=== PATIENT | male | born 1960 | race Caucasian/White ===

== ENCOUNTER 2021-03-27 14:51 | Emergency (ER) | payer BC ==
--- OUTSIDE RECORDS SUMMARY | 2021-03-27 14:53 | XMS REPORT | Continuity of Care Document ---
:1960 Author Organization [facility] t Address [facility] [place] [address] Care Team Providers Name Role Phone Andrei MENDOSA, Bal Primary Care Physician Mohsen Jason MD Attending Clinician Helen Tolbert MD Attending Clinician [phone] Phan Telles MD Attending Clinician David Villareal MD Attending Clinician Payers Payer Name Policy Type Policy Effective Date Expiration Date Sour ce Number BCBSBCBS OUT OF [id number] [id number] 00:00:00 [facility] entPPO Problems Condition Condition Condition Status Onset Resolution Last Treating Co mments Source Name Details Category Date Date Treatment Clinician Date No known No known Disease Metho di active active st problems problems Hospit a l Allergies, Adverse Reactions, Alerts Allergy Allergy Status Severity Reaction(s) Onset Inactive Treating Comm ents Source Name Type Date Date Clinician Codesebas Propensi Active GI 2012-08 Methodi ty to Intolerance 2-18 st adverse 00:00: Hospita reaction 00 l s to drug Family History Family Member Diagnosis Comments Start Date Stop Date Source Natural brother Cancer [facility] Natural father Cancer [facility] Natural mother Kidney disease [facility] Social History Social Habit Start Date Stop Date Quantity Comments Source Exposure to Not sure [facility] SARS-CoV-2 (event) Hospit al Cigarettes smoked 2021-03-04 2021-03-[address] current (pack per 00:00:00 00:00:00 Hospita l day) - Reported Cigarette 2021-03-04 2021-03-04 [facility] pack-years 00:00:00 00:00:00 Hospital Tobacco use and 2021-03-04 2021-03-04 Never used [facility] exposure 00:00:00 00:00:00 Hospital Alcohol intake 2021-03-04 2021-03-04 Current drinker Metho dist 00:00:00 00:00:00 of alcohol Hospital (finding) History of tobacco 1975-01-29 2013-09-10 Current smoker [facility] use 00:00:00 00:00:00 Hospital Sex Ass[birth year] At [birth year] [facility] 00:00:00 00:00:00 Hospital Smoking Status Start Date Stop Date Source Former smoker 2021-03-04 00:00:00 2021-03-04 00:00:00 [facility] Medications Ordered Filled Start Stop Current Ordering Indication Dosage Frequency Signature Comments Components Source Medication Medication Date Date Medication? Clinician (SIG) Name Name GARLIC ORAL Yes Take by Met [facility] -[address] 18:37: Hospita 26 l gluc Yes by NOT Methodi feldman/chondro 03-[address] feldman A/vit 18:37: route. Hospita C/Mn 26 l (GLUCOSAMIN E 1500 COMPLEX ORAL) sildenafil, Yes TAKE 2 TO M ethodi for 5-[address] pulmonary 00:00: BY MOUTH Hosp brielle hypertensio 00 ONCE DAILY l n, NEEDED (REVATIO) FOR 20 mg SEXUAL tablet INTERCOURS E allopurinoL Yes TAKE 1 Meth kvng (ZYLOPRIM) 3-26 TABLET(300 st 300 MG 00:00: MG) BY Hospita tablet 00 MOUTH l DAILY metoprolol Yes TAKE 1 Metho di succinate 3-26 TABLET(200 st XL 00:00: MG) BY Hospita (TOPROL-XL) 00 MOUTH l 200 mg 24 DAILY hr tablet colchicine Yes .6mg Take 0.6 Met [facility] 0.6 mg 3-[address] tablet 00:00: mouth. Hospita 00 l gabapentin Yes TAKE ONE [facility]odi (NEURONTIN) 3-[address] 100 mg 00:00: MOUTH Hospita capsule 00 NIGHTLY l spironolact 2018-0 Yes 50mg Take 50 mg Methodi one 5-[address] (ALDACTONE) 00:00: Hospit a 50 MG 00 l tablet Vital Signs Vital Name Observation Time Observation Value Comments Source Body height 2021-03-04 18:32:00 185.4 cm [facility] Body weight 2021-03-04 18:32:00 113.399 kg [facility] BMI 2021-03-04 18:32:00 32.98 kg/m2 [facility] Procedures Procedure Date / Time Performed Performing Clinician Sour e XR KNEE AP STANDING 2021-03-04 18:41:57 [facility] BILATERAL XR KNEE 3 VW RIGHT 2021-03-04 18:41:10 Georgi Villareal [facility] Plan of Care Planned Activity Planned Date Details Comments Source Future Scheduled Test COVID-19 VACCINE (1) [facility] [code = COVID-19 VACCINE (1)] Future Scheduled Test Hepatitis C screening [facility] (procedure) [code = 646520154] Future Scheduled Test COLONOSCOPY SCREENING [facility] [code = COLONOSCOPY SCREENING] Future Scheduled Test SHINGLES VACCINES (#1) [facility] [code = SHINGLES VACCINES (#1)] Future Scheduled Test Screening for malignant [facility] neoplasm of lung (procedure) [code = 671254037] Future Scheduled Test INFLUENZA VACCINE [code [facility] = INFLUENZA VACCINE] Encounters Start End Encounter Admission Attending Care Care Encounter Source Date/Time Date/Time Type Type Clinicians Facility Department ID 2021-03-11 2021-03-11 Transcribe Eren, 1.2.840.1 [id number] Methodi 00:00:00 00:00:00 Orders Ruben 44478.1.[address] [facility] 3.430.2.7 Hospit a .3.310824 l .8 2021-03-11 2021-03-11 Orders Castañeda-Sand 1.2.840.1 [id number] Methodi 00:00:00 00:00:00 Only oval, [address]882.1.[address] Helen 3.430.2.7 Ho spita .3.778873 l .8 2021-03-09 2021-03-09 Telephone Maddy-Sharifa 1.2.840.1 [id number] Methodi 00:00:00 00:00:00 skyla, [address]63.1.[address] Cervantes 3.430.2.7 Ho spita .3.279703 l .8 2021-03-09 2021-03-09 Telephone [place], 1.2.840.1 [id number] Methodi 00:00:00 00:00:00 Hiram Phan [address]95.[address] 3.430.2.7 Hospit a .3.204718 l .8 2021-03-04 2021-03-04 Office Sitter, 1.2.840.1 [id number] Methodi 13:19:37 13:58:42 Visit Georgi Hernandez 27365.1.1 240 s t 3.430.2.7 Hospit a .3.402063 l .8 2021-03-04 2021-03-04 Travel 1.2.840.1 1.2.141.239 [id number] Methodi 00:00:00 00:00:[address] 3.430.2.7 0.2.7.3.698 Ho spita .3.234783 084.8 l .8 2021-03-04 2021-03-04 Outpatient SITTER, [facility] [id number] [place] 00:00:00 00:00:00 GEORGI [address] 2021-03-04 2021-03-04 Outpatient SITTER, [facility] [id number] [place] 00:00:00 00:00:00 GEORGI [address] 2021-03-04 2021-03-04 Outpatient SITTER, [facility] [id number] [place] 00:00:00 00:00:00 GEORGI [address] 2021-02-11 2021-02-11 Travel 1.2.840.1 [id number] [id number] Methodi 00:00:00 00:00:[address] 3.430.2.7 0.2.7.3.698 Ho spita .3.396425 084.8 l .8 Results This patient has no known results.
--- NOTE | 2021-03-27 16:46 | RAD REPORT ---
EXAM DESCRIPTION: RAD - Chest Pa And Lat (2 Views) - 03/27/2021 4:07 pm CLINICAL HISTORY: SOB Chest pain. COMPARISON: <Comparisons> FINDINGS: Mild bilateral pulmonary opacities are present, greater on the left. Most likely, this is related viral infection. The heart is normal in size. No displaced fractures.
[2021-03-27 16:49] LABS: Absolute Lymphocytes (CBC) 1.6 K/uL (0.7-4.9); Basophils % 0.5 % (0-1.3); Hematocrit 49.8 % (39.6-49.0); Lymphocytes % 17.2 % (15.3-44.8); MPV 7.8 fL (7.6-11.3); RBC Red Blood Cell Count 5.48 M/uL (4.33-5.43)
[2021-03-27 16:57] LABS: Protime INR 1.28
[2021-03-27 17:07] LABS: ALT/SGPT 72 U/L (12-78); AST/SGOT 73 U/L (15-37); BUN Blood Urea Nitrogen 19 mg/dL (7-18); Bicarbonate 28 mmol/L (21-32); Glucose Level 92 mg/dL (74-106); Potassium 3.9 mmol/L (3.5-5.1); Sodium Level 131 mmol/L (136-145)
[2021-03-27 17:08] LABS: Albumin 2.9 g/dL (3.4-5.0); Alkaline Phosphatase 103 U/L (45-117); Bilirubin Direct 0.4 mg/dL (0-0.2); Bilirubin Total 0.7 mg/dL (0.2-1.0); Ferritin 606.8 ng/mL (26-388); Magnesium 1.9 mg/dL (1.8-2.4); NT PRO-BNP 103 pg/mL (<125); Protein, Total 6.7 g/dL (6.4-8.2); Troponin (Emerg Dept Use Only) < 0.02 ng/mL (0.0-0.045)
[2021-03-27 17:42] LABS: Blood Morphology Comment NOT SEEN (NOT SEEN); Platelet Estimate ADEQ; White Blood Cell Scan OK (OK)
[2021-03-27 21:18] LABS: Blood Gas Oxyhemoglobin 89.3 % (94-97)
[2021-03-27] MEDS ORDERED: NA CHLORIDE 0.9% 1,000 ML ONE (21:36)
--- NOTE | 2021-03-27 22:04 | ER ---
Nurse's Notes [facility] Name: Georgi Campoverde Age: 60 yrs Sex: Male : 1960 Arrival Date: 03/27/2021 Time: 14:52 Bed 8 Private MD: Diagnosis: Influenza due to other identified influenza virus with pneumonia;SARS-associated coronavirus as the cause of diseases classified elsewhere Presentation: 03/27 15:44 Chief complaint: Patient states: Chills, body aches, SOB x 1 week. Coronavirus screen: kg Client denies travel out of the [place] in the last 14 days. At this time, unable to obtain information related to travel outside the [place] Client presents with at least one sign or symptom that may indicate coronavirus-19. Standard/surgical mask placed on the client. Provider contacted for isolation considerations. Ebola Screen: Patient negative for fever greater than or equal to 101.5 degrees Fahrenheit, and additional compatible Ebola Virus Disease symptoms Patient denies exposure to infectious person. Patient denies travel to an Ebola-affected area in the 21 days before illness onset. Initial Sepsis Screen: Does the patient meet any 2 criteria? No. Patient's initial sepsis screen is negative. Does the patient have a suspected source of infection? No. Patient's initial sepsis screen is negative. Onset of symptoms was March 22, 2021. 15:44 Method Of Arrival: Ambulatory kg 15:48 Risk Assessment: Do you want to hurt yourself or someone else? Patient reports no kg desire to harm self or others. 15:48 Acuity: KRYSTEN 3 kg Triage Assessment: 15:59 General: Appears in no apparent distress. Behavior is calm, cooperative, appropriate kg for age, quiet. Respiratory: Reports shortness of breath at rest on exertion cough that is Onset: The symptoms/episode began/occurred gradually, the patient has mild shortness of breath. Historical: - Allergies: 15:48 codeine sulfate; kg - Home Meds: 15:48 Bystolic 20 mg oral tab 1 tab once daily [Active]; gabapentin oral [Active]; kg allopurinol 300 mg Oral tab 1 tab [Active]; - PMHx: 15:48 Hypertensive disorder; Gout; neuropathy; kg - Immunization history:: Adult Immunizations not up to date, Client reports having NOT received the Covid vaccine. - Social history:: Smoking status: Patient denies any tobacco usage or history of. Patient uses alcohol, weekly. Screenin:47 Abuse screen: Denies threats or abuse. Denies injuries from another. Nutritional kg screening: No deficits noted. Tuberculosis screening: No symptoms or risk factors identified. Fall Risk None identified. No fall in past 12 months (0 pts). No secondary diagnosis (0 pts). No IV (0 pts). Ambulatory Aid- None/Bed Rest/Nurse Assist (0 pts). Gait- Normal/Bed Rest/Wheelchair (0 pts) Mental Status- Oriented to own ability (0 pts). Total Mcbride Fall Scale indicates No Risk (0-24 pts). Assessment: 15:57 Pain: Complains of pain in chest, Generalized. Respiratory: Airway is patent kg Respiratory effort is even, unlabored, relaxed, Breath sounds are clear. 21:00 Reassessment:. General: Appears in no apparent distress. uncomfortable, Behavior is jb4 calm, cooperative, appropriate for age. Pain: Denies pain. Neuro: Level of Consciousness is awake, alert, obeys commands, Oriented to person, place, time, situation. Cardiovascular: Patient's skin is warm and dry. Respiratory: Airway is patent Respiratory effort is even, unlabored, Respiratory pattern is regular, symmetrical. GI: No signs and/or symptoms were reported involving the gastrointestinal system. : No signs and/or symptoms were reported regarding the genitourinary system. EENT: No signs and/or symptoms were reported regarding the EENT system. Derm: Skin is intact, Skin is pink, warm \T\ dry. Musculoskeletal: Circulation, motion, and sensation intact. Range of motion: intact in all extremities. 22:00 Reassessment: Patient appears in no apparent distress at this time. Patient and/or jb4 family updated on plan of care and expected duration. Pain level reassessed. Patient is alert, oriented x 3, equal unlabored respirations, skin warm/dry/pink. d/c pending completion of IV fluids, received verbal order to bolus remaining fluids. 22:52 Reassessment: Patient appears in no apparent distress at this time. Patient and/or jb4 family updated on plan of care and expected duration. Pain level reassessed. Patient is alert, oriented x 3, equal unlabored respirations, skin warm/dry/pink. Vital Signs: 15:44 Pulse 66; Resp 20; Pulse Ox 91% on R/A; Weight 108.86 kg (R); Height 6 ft. 1 in. kg (185.42 cm); Pain 4/10; 21:30 BP 130 / 77; Pulse 68; Resp 20; Temp 97.1(TE); Pulse Ox 96% on R/A; jb4 22:30 BP 108 / 66; Pulse 73; Resp 16; Pulse Ox 95% on R/A; jb4 15:44 Body Mass Index 31.66 (108.86 kg, 185.42 cm) kg ED Course: 14:52 Patient arrived in ED. as 15:47 Patient has correct armband on for positive identification. kg 15:47 No provider procedures requiring assistance completed. kg 15:48 Triage completed. kg 16:01 Yahir Garzon PA is PHCP. cp 16:01 Yusef Phelps MD is Attending Physician. cp 16:06 XRAY Chest Pa And Lat (2 Views) In Process Unspecified. EDMS 16:25 Inserted saline lock: 20 gauge in right. kg 21:08 Georgi Slade, RN is Primary Nurse. jb4 22:30 IV discontinued, intact, bleeding controlled, No redness/swelling at site. Pressure jb4 dressing applied. Administered Medications: 21:19 Drug: NS 0.9% 500 ml Route: IV; Rate: bolus; Site: right antecubital; jb4 21:55 Follow up: Response: No adverse reaction; IV Status: Completed infusion; IV Intake: jb4 500ml 22:00 Drug: SOLU-Medrol (methylPrednisoLONE) 125 mg Route: IVP; Site: right antecubital; jb4 23:07 Follow up: Response: No adverse reaction jb4 22:00 Drug: NS 0.9% 500 ml Route: IV; Rate: 125 ml/hr; Site: right antecubital; jb4 22:45 Follow up: Response: No adverse reaction; IV Status: Completed infusion; IV Intake: jb4 500ml 22:00 Drug: Tessalon Perle (benzonatate) 200 mg Route: PO; jb4 23:07 Follow up: Response: No adverse reaction jb4 22:00 Drug: Albuterol HFA Inhaler 2 puffs Route: Inhalation; jb4 23:07 Follow up: Response: No adverse reaction jb4 Intake: 21:55 IV: 500ml; Total: 500ml. jb4 22:45 IV: 500ml; Total: 1000ml. jb4 Outcome: 22:04 Discharge ordered by . barry 23:06 Discharged to home ambulatory. jb4 23:06 Condition: stable 23:06 Discharge instructions given to patient, Instructed on discharge instructions, follow up and referral plans. no driving heavy equipment, Demonstrated understanding of instructions, follow-up care, medications, Prescriptions given X 5 23:08 Patient left the ED. jb4 Signatures: Dispatcher [employer] EDVeronique Calix Corey, PA PA cp Bryson, James, RN RN jb4 Katy Rodriguez RN RN kg Corrections: (The following items were deleted from the chart) 15:54 15:48 PMHx: History of urinary tract infection; kg kg
--- NOTE | 2021-03-27 22:04 | EDPHYS ---
Physician Documentation [facility] Name: Georgi Campoverde Age: 60 yrs Sex: Male : 1960 Arrival Date: 03/27/2021 Time: 14:52 Bed 8 Private MD: ED Physician Yusef Phelps HPI: 03/27 16:00 This 60 yrs old Male presents to ER via Ambulatory with complaints of Pain cp All Over, Shortness Of Breath, r/o covid. 16:00 The patient has shortness of breath at rest. cp 16:00 Onset: The symptoms/episode began/occurred 1 week(s) ago. cp 16:00 Duration: The symptoms are continuous, and are steadily getting worse. The patient's cp shortness of breath is aggravated by light activity. Associated signs and symptoms: Pertinent positives: non-productive cough, body aches/pain all over, Pertinent negatives: chest pain, fever, vomiting, abdominal pain. Severity of symptoms: in the emergency department the symptoms are unchanged despite home interventions. Historical: - Allergies: 15:48 codeine sulfate; kg - Home Meds: 15:48 Bystolic 20 mg oral tab 1 tab once daily [Active]; gabapentin oral [Active]; kg allopurinol 300 mg Oral tab 1 tab [Active]; - PMHx: 15:48 Hypertensive disorder; Gout; neuropathy; kg - Immunization history:: Adult Immunizations not up to date, Client reports having NOT received the Covid vaccine. - Social history:: Smoking status: Patient denies any tobacco usage or history of. Patient uses alcohol, weekly. ROS: 16:05 Constitutional: Positive for body aches, Negative for chills, fever, poor PO intake. cp 16:05 Eyes: Negative for injury, pain, redness, and discharge. cp 16:05 ENT: Negative for ear pain, sore throat, difficulty swallowing, difficulty handling secretions. 16:05 Cardiovascular: Negative for chest pain, edema, palpitations. 16:05 Respiratory: Positive for cough, "sounds productive", shortness of breath, on exertion. Negative for wheezing. 16:05 Abdomen/GI: Negative for abdominal pain, vomiting, diarrhea, constipation. 16:05 Skin: Negative for rash. 16:05 Neuro: Negative for altered mental status, dizziness, headache, syncope, weakness. 16:05 All other systems are negative. Exam: 16:10 Constitutional: The patient appears in no acute distress, alert, awake, cp non-diaphoretic, non-toxic, well developed, well nourished. 16:10 Head/Face: Normocephalic, atraumatic. cp 16:10 Eyes: Periorbital structures: appear normal, Conjunctiva: normal, no exudate, no injection, Sclera: no appreciated abnormality, Lids and lashes: appear normal, bilaterally. 16:10 ENT: External ear(s): are unremarkable, Ear canal(s): are normal, clear, TM's: dullness, bilaterally, Nose: is normal, Mouth: Lips: moist, Oral mucosa: pink and intact, moist, Posterior pharynx: Airway: no evidence of obstruction, patent. 16:10 Neck: ROM/movement: is normal, is supple, without pain, no range of motions limitations, no meningismus. 16:10 Chest/axilla: Inspection: normal, Palpation: is normal, no crepitus, no tenderness. 16:10 Cardiovascular: Rate: normal, Rhythm: regular, Edema: is not appreciated, JVD: is not appreciated. 16:10 Respiratory: the patient does not display signs of respiratory distress, Respirations: labored breathing, is not present, shallow respirations, are not present, Breath sounds: bronchial sounds, that are mild, are heard diffusely, decreased breath sounds, are not appreciated, stridor, is not appreciated, wheezing: is not appreciated. 16:10 Abdomen/GI: Inspection: abdomen appears normal, Bowel sounds: active, all quadrants, Palpation: abdomen is soft and non-tender, in all quadrants. 16:10 Back: pain, is absent, ROM is normal. 16:10 Neuro: Orientation: to person, place \\T\\ time. Mentation: is normal, Motor: moves all fours, strength is normal, Gait: is steady, at a normal pace, without difficulty. 21:41 ECG was reviewed by the Attending Physician. cp Vital Signs: 15:44 Pulse 66; Resp 20; Pulse Ox 91% on R/A; Weight 108.86 kg (R); Height 6 ft. 1 in. kg (185.42 cm); Pain 4/10; 21:30 BP 130 / 77; Pulse 68; Resp 20; Temp 97.1(TE); Pulse Ox 96% on R/A; jb4 22:30 BP 108 / 66; Pulse 73; Resp 16; Pulse Ox 95% on R/A; jb4 15:44 Body Mass Index 31.66 (108.86 kg, 185.42 cm) kg MDM: 17:00 Differential diagnosis: Bronchitis CHF exacerbation, Chronic Obstructive Pulmonary cp Disease Myocardial Infarction pneumonia, Pneumothorax pulmonary edema, Pulmonary Embolism Sepsis Unstable Angina respiratory failure, COVID-19. 20:58 Patient medically screened. cp 21:58 ED course: Vital signs stable. Patient observed to have oxygen sats at 95% on room air cp will be monitored in the exam room. Patient appears nontoxic no signs of respiratory distress. Symptoms improved with meds. Will discharge to home for continued monitoring with strict instructions to return to the emergency department worsening cough congestion if oxygen sats fall below 90% while resting, difficulty breathing. 22:00 Data reviewed: vital signs, nurses notes, lab test result(s), EKG, radiologic studies, cp plain films. 22:00 Test interpretation: by ED physician or midlevel provider: ECG, plain radiologic cp studies. Counseling: I had a detailed discussion with the patient and/or guardian regarding: the historical points, exam findings, and any diagnostic results supporting the discharge/admit diagnosis, lab results, radiology results, to return to the emergency department if symptoms worsen or persist or if there are any questions or concerns that arise at home. Response to treatment: the patient's symptoms have markedly improved after treatment, and as a result, I will discharge patient. 03/27 15:47 Order name: Flu kg 03/27 15:47 Order name: Influenza Screen (A ; Complete Time: 18:12 EDMS 03/27 19:32 Interpretation: Abnormal: FLUB FLU B ----- POSITIVE for FLU B protein antigen. cp 03/27 15:55 Order name: COVID-19 : Document "Date of Symptom Onset" if Symptomatic. eb 03/27 16:02 Order name: Basic Metabolic Panel cp 03/27 16:02 Order name: CBC with Diff cp 03/27 16:02 Order name: LFT's cp 03/27 16:02 Order name: Magnesium cp 03/27 16:02 Order name: NT PRO-BNP cp 03/27 16:02 Order name: PT-INR; Complete Time: 18:12 cp 08/06 16:02 Order name: Troponin (emerg Dept Use Only); Complete Time: 18:12 cp / 16:02 Order name: CRP; Complete Time: 18:12 cp / 19:32 Interpretation: Abnormal: C-REACTIVE PROT 18.70. cp / 16:02 Order name: Ferritin; Complete Time: 18:12 cp / 15:47 Order name: XRAY Chest Pa And Lat (2 Views); Complete Time: 18:12 kg 03/27 19:34 Interpretation: Report reviewed. cp 08/ 16:02 Order name: EKG; Complete Time: 16:03 cp 03/27 16:02 Order name: Cardiac monitoring; Complete Time: 21:10 cp / 16:02 Order name: Basic Metabolic Panel; Complete Time: 18:12 EDMS 03/27 19:32 Interpretation: Normal except: NA 131; CL 97; BUN 19; CRE 1.43; GFR 50. cp / 16:02 Order name: CBC with Automated Diff; Complete Time: 18:12 EDMS 03/27 20:47 Interpretation: Normal except: RBC 5.48; HCT 49.8. cp / 16:02 Order name: Liver (Hepatic) Function; Complete Time: 18:12 EDMS 03/27 16:02 Order name: Magnesium; Complete Time: 18:12 EDMS 03/27 16:02 Order name: NT PRO-BNP; Complete Time: 18:12 EDMS 06 17:17 Order name: SARS-COV-2 RT PCR; Complete Time: 18:12 EDMS 06 19:33 Interpretation: Abnormal: SARSCOV2 RT PCR POSITIVE. cp / 17:42 Order name: CBC Smear Scan; Complete Time: 18:12 EDMS 06 20:58 Order name: ABG cp 03/27 16:02 Order name: EKG - Nurse/Tech; Complete Time: 21:45 cp / 16:02 Order name: IV Saline Lock; Complete Time: 21:09 cp /06 16:02 Order name: Labs collected and sent; Complete Time: 21:19 cp /06 16:02 Order name: O2 Per Protocol; Complete Time: 21:09 cp / 16:02 Order name: O2 Sat Monitoring; Complete Time: 21:09 cp 03/27 20:58 Order name: Vital Signs: please repeat to include temp; Complete Time: 22:05 cp EC:41 Rate is 56 beats/min. Rhythm is regular. UT interval is normal. QRS interval is normal. cp QT interval is normal. T waves are Inverted in lead aVR. Interpreted by me. Reviewed by me. Administered Medications: 21:19 Drug: NS 0.9% 500 ml Route: IV; Rate: bolus; Site: right antecubital; jb4 21:55 Follow up: Response: No adverse reaction; IV Status: Completed infusion; IV Intake: jb4 500ml 22:00 Drug: SOLU-Medrol (methylPrednisoLONE) 125 mg Route: IVP; Site: right antecubital; jb4 23:07 Follow up: Response: No adverse reaction jb4 22:00 Drug: NS 0.9% 500 ml Route: IV; Rate: 125 ml/hr; Site: right antecubital; jb4 22:45 Follow up: Response: No adverse reaction; IV Status: Completed infusion; IV Intake: jb4 500ml 22:00 Drug: Tessalon Perle (benzonatate) 200 mg Route: PO; jb4 23:07 Follow up: Response: No adverse reaction jb4 22:00 Drug: Albuterol HFA Inhaler 2 puffs Route: Inhalation; jb4 23:07 Follow up: Response: No adverse reaction jb4 Disposition: 03/28 18:14 Co-signature as Attending Physician, Yusef Phelps MD I agree with the assessment and kdr plan of care. Disposition Summary: 03/27/21 22:04 Discharge Ordered Location: Home cp Problem: new cp Symptoms: have improved cp Condition: Stable cp Diagnosis - Influenza due to other identified influenza virus with pneumonia cp - SARS-associated coronavirus as the cause of diseases classified elsewhere cp Followup: cp - With: Private Physician - When: 2 - 3 days - Reason: Worsening of condition Discharge Instructions: - Discharge Summary Sheet cp - Influenza, Adult cp - COVID-19 cp - Things to Know about the COVID-19 Pandemic - [facility] cp - 10 Things You Can Do to Manage Your COVID-19 Symptoms at Home - [facility] cp - COVID-19: Quarantine vs. Isolation - [facility] cp - Prevent the Spread of COVID-19 if You Are Sick - [facility] cp Forms: - Medication Reconciliation Form cp - Thank You Letter cp - Antibiotic Education cp - Prescription Opioid Use cp Prescriptions: - Tessalon Perles 100 mg Oral Capsule - take 2 capsule by ORAL route every 8 hours As needed; 30 capsule; Refills: 0, cp Product Selection Permitted - Prednisone 20 mg Oral Tablet - take 2 tablets by ORAL route once daily for 5 days then take 1 tablet daily for cp 5 days; 15 tablet; Refills: 0, Product Selection Permitted - Tamiflu 75 mg Oral Capsule - take 1 tablet by ORAL route every 12 hours for 5 days; 10 tablet; Refills: 0, cp Product Selection Permitted - albuterol sulfate 90 mcg/actuation Inhalation HFA aerosol inhaler - inhale 2 puff by INHALATION route every 4-6 hours; 1 Inhaler; Refills: 0, cp Product Selection Permitted - Zithromax Z-Flex 250 mg Oral Tablet - take 1 tablet by ORAL route as directed for 5 days Day 1 - take two (2) tablets cp one time. Day 2, 3, 4 , 5 take one (1) tablet once daily.; 6 tablet; Refills: 0, Product Selection Permitted Signatures: Dispatcher [employer] EDMS Yusef Phelps MD MD kdr Vijay Fam, BRICK OFFBEARER-C BRICK OFFBEARER-Cla1 Yahir Garzon PA PA cp Georgi Slade, RN RN jb4 Katy Rodriguez, AIYANA RN kg Corrections: (The following items were deleted from the chart) 03/27 15:54 15:48 PMHx: History of urinary tract infection; kg kg 16:21 15:56 CORONAVIRUS ordered. EDFL EDMS
[2021-03-27] MEDS ORDERED: BENZONATATE 100 MG CAP PO ONE (22:12)
[2021-03-27] MEDS ORDERED: ALBUTEROL INHALER 60 PUFF/8 GM IH ONE (22:12)
[2021-03-27] MEDS ORDERED: METHYLPREDNISOLONE 125 MG INJ ONE (22:12)
[2021-03-27 23:19] VITALS: TEMP 97.1
[2021-03-27 23:21] VITALS: BP 108/66; O2SAT 95
--- NOTE | 2021-03-29 08:03 | EKG ---
Test Date: 2021-03-27 Test Time: 21:39:34 Board Setter: CHRISTOPHER MEASUREMENT RESULTS: Intervals: Rate: 56 MA: 152 QRSD: 74 QT: 440 QTc: 424 [place]: P: 10 MA: 152 QRS: 0 T: 9 INTERPRETIVE STATEMENTS: Sinus bradycardia Low voltage QRS Borderline ECG No previous ECG available for comparison Electronically Signed On 03-29-21 08:00:31 CDT by Ras Acosta
== END 2021-03-27 23:08 | disposition home or self-care (01) ==
LOC: ER 14:51
DX: U07.1 COVID-19 (principal); J10.00 Influenza due to other identified influenza virus with unspecified type of pneumonia; I10 Essential (primary) hypertension; Z88.5 Allergy status to narcotic agent
CPT/HCPCS: 96361; 93005; 85025; 80048; 36415; 83735; 85610; 80076; 84484; 82728; 83880; 86140; 87804 ×2; 71046; 82805; 96374; 99284; U0003; J7030; J2930